=== PATIENT | female | born 1980 | race Caucasian/White ===

== ENCOUNTER → 2021-03-10 10:14 | Outpatient (CLI) | payer OTHER, SELFPAY ==
--- NOTE | ~2021-03-10 | US_ITS ---
EXAMINATION: US right upper quadrant EXAM DATE: 03/10/2021 10:33 INDICATION: Abdominal pain, RUQ . TECHNIQUE: Multiple grayscale and Doppler images of the abdomen right upper quadrant were obtained (b y a technologist who performed the scan) and subsequently reviewed. Lower medial course FINDINGS: The pancreatic head and body are normal in appearance. The pancreatic tail is not visualized. The l iver has normal echogenicity and contour. There are no focal liver lesions identified. There is no evidence of intrahepatic biliary duct dilation. Portal venous flow was seen in the hepatopedal, nor mal direction and has normal Doppler waveform. No right-sided hydronephrosis. Common bile duct measures 6 mm, which is normal. The gallbladder fossa is unremarkable. IMPRESSION: Unremarkable abdominal ultrasound exam. Reviewed, dictated and finalized at location B.
== END ==
PROVIDERS: PCP Internal Medicine; Visit Provider Internal Medicine
DX: R10.11 Right upper quadrant pain (principal)
CPT/HCPCS: 76705